=== PATIENT | female | born 1980 | race Caucasian/White ===

== ENCOUNTER → 2018-07-12 12:09 | Outpatient (CLI) | payer OTHER, SELFPAY ==
--- NOTE | 2018-07-12 12:17 | DI.US.S_ITS ---
PROCEDURE: US OB <= 14 WEEKS FETUS INDICATIONS: DATING, VIABILITY OUTSIDE/PRIOR DATING DATA: Last menstrual period (LMP): 04/21/18. LMP-based estimated date of delivery (SISI): 01/26/19. First dating scan (date and location): This study, 07/12/18. Estimated date of delivery (SISI) from first dating scan: 01/26/19, plus or -5 days, based on this study. TECHNIQUE: Real-time scanning was performed of the fetus and maternal pelvic organs, with image documentation. Endovaginal scanning was also performed to better visualize the fetus and maternal ovaries. COMPARISON: None. FINDINGS: Embryo: [place]-rump length of 4.9 cm, which correlates with a gestational age of 11 weeks 5 days, plus or -5 days. cardiac activity at 171 beats per minute is present. Maternal cervical length is normal at 4.1 cm. Measurement variability in dating: +/- 4 weeks by LMP, +/- 7 days by mean sac diameter (use before 6 weeks gestation if crown-rump length not able to be measured), +/- 5 days by crown-rump length (up to 8 weeks 6 days gestation), +/- 7 days by crown-rump length (up to 13 weeks 6 days gestation). Maternal organs: Ovaries appear normal considering gestational status. Limited images through the kidneys demonstrate no hydronephrosis. IMPRESSION: Single living intrauterine gestation with crown-rump length yielding a gestational age of 11 weeks 5 days, plus or -5 days. Followup anatomic survey at approximately 21 weeks gestation is recommended. The delivery date is projected to be centered on 07/12/18. Dictated by: Alan Diallo M.D. on 07/12/2018 at 15:16 Approved by: Alan Diallo M.D. on 07/12/2018 at 15:25
== END ==
PROVIDERS: PCP Family Medicine; Visit Provider Obstetrics & Gynecology
DX: Z34.81 Encounter for supervision of other normal pregnancy, first trimester (principal); Z3A.11 11 weeks gestation of pregnancy
CPT/HCPCS: 76801

== ENCOUNTER → 2018-07-13 10:57 | Outpatient (CLI) | payer OTHER, SELFPAY ==
[2018-07-13 11:33] LABS: Appearance Urine UA CLEAR; Bilirubin Urine UA NEGATIVE (NEGATIVE); Color Urine UA YELLOW; Glucose Urine UA NEGATIVE (Normal); Ketones Urine UA NEGATIVE (NEGATIVE); Leukocyte Esterase Urine UA NEGATIVE (NEGATIVE); Nitrite Urine UA NEGATIVE (Negative); Occult Blood Urine UA NEGATIVE (Negative); Protein Urine UA NEGATIVE (Negative); Specific Gravity Urine UA 1.025 (1.000-1.035); Urobilinogen Urine UA 0.2 E.U./dL (0.2)
[2018-07-13 11:40] LABS: Add Manual Diff / Slide Review NO; Basophils Percent Auto 0.4 % (0-2); Eosinophils Percent Auto 0.7 % (2-4); Hematocrit 39.2 % (36-46); Hemoglobin 13.8 g/dL (12.0-16.0); Lymphocytes Percent Auto 15.1 % (25-40); Mean Corpuscular HGB Conc 35.2 % (30-36); Mean Corpuscular Hemoglobin 32.7 PG (26-34); Monocytes Percent Auto 5.2 % (3-14); Neutrophils Absolute Auto 6700 /uL (3000-5900); Neutrophils Percent Auto 78.6 % (50-75); Platelet Count 236 X10^3/uL (150-400); Red Blood Cell Count 4.22 X10^6/uL (4.0-5.2); Red Cell Distribution Width 13.3 % (11.6-14.8); White Blood Cell Count 8.5 X10^3/uL (4.5-11.0)
[2018-07-13 12:16] LABS: Hepatitis B Surface Antigen NEGATIVE s/c (NEGATIVE); Rubella Antibody IgG 15.1 IU/mL (>15)
[2018-07-13 12:32] LABS: HIV 1 and 2 Antibody NEGATIVE (NEGATIVE); Hep C Virus Ab w/Reflex Quant NEGATIVE s/c (NEGATIVE)
[2018-07-14 14:30] LABS: HSV 2 IGG AB < 0.90 index (< 0.90); HSV1IGG 8.16 index (< 0.90)
[2018-07-15 14:24] LABS: RPR Screen Nonreactive (Nonreactive)
== END ==
PROVIDERS: PCP Family Medicine; Visit Provider Obstetrics & Gynecology
DX: Z34.91 Encounter for supervision of normal pregnancy, unspecified, first trimester (principal)
CPT/HCPCS: 36415; 80055; 81003; 86695; 86696; 86703; 86787; 86803; 86850; 86900; 86901; 87086

== ENCOUNTER → 2018-07-18 14:59 | Outpatient (CLI) | payer OTHER, SELFPAY ==
[2018-07-18 20:16] LABS: Urine N gonorrhoeae NOT DETECTED
[2018-07-18 20:21] LABS: Urine Chlamydia NOT DETECTED
== END ==
PROVIDERS: PCP Family Medicine; Visit Provider Obstetrics & Gynecology
DX: Z34.81 Encounter for supervision of other normal pregnancy, first trimester (principal)
CPT/HCPCS: 87491; 87591

== ENCOUNTER → 2018-08-15 10:35 | Outpatient (CLI) | payer OTHER, SELFPAY ==
[2018-08-20 11:59] LABS: AFP, Serum 34.9 ng/mL; Calc Gestational Age 16.6; Cigarette Smoker N; Donated Egg NOT GIVEN; Donor Egg Age NOT GIVEN; Estriol, Free 0.67 ng/mL; Inhibin A, Dimeric 111 pg/mL; Maternal Weight 140 lbs; Number of Fetuses 1; Previous Pregnancy Down Syndro NOT GIVEN; hCG, MoM 0.72; hCG, Serum 23.1 IU/mL
== END ==
PROVIDERS: PCP Family Medicine; Visit Provider Obstetrics & Gynecology
DX: Z34.82 Encounter for supervision of other normal pregnancy, second trimester (principal)
CPT/HCPCS: 36415; 82105; 82677; 84702; 86336

== ENCOUNTER → 2018-09-17 10:43 | Outpatient (CLI) | payer OTHER, SELFPAY ==
--- NOTE | 2018-09-17 10:44 | DI.US.S_ITS ---
PROCEDURE: US OB >= 14 WEEKS FETUS INDICATIONS: ANATOMY SURVEY OUTSIDE/PRIOR DATING DATA: Last menstrual period (LMP): 04/21/18. LMP-based estimated date of delivery (SISI): 01/26/19. First dating scan (date and location): 07/12/18 Estimated date of delivery (SISI) from first dating scan: 01/26/19. TECHNIQUE: Real-time scanning was performed of the fetus, with image documentation and biometric measurements. Endovaginal scanning: Not needed for this study. COMPARISON: [facility], , OB >= 14 WEEKS FETUS, 07/18/2018, 15:11. FINDINGS: General: A single living intrauterine gestation is present. Presentation: Vertex. Placenta: Placental position is anterior, without previa. Amniotic fluid index: 13.5 cm, normal range is 5-24 cm. heart rate: 153 beats per minute. Maternal cervical canal: 4.0 cm long. Normal lower limit is 2.5 cm. biometrics: Biparietal diameter: 5.0 cm, 21 weeks 1 day Head circumference: 18.3 cm, 20 weeks 5 days Abdominal circumference: 16.8 cm, 21 weeks 6 days Femur length: 3.3 cm, 20 weeks 1 day Estimated gestational age from initial scan: 21 weeks 2 days Composite gestational age from present scan: 21 weeks 0 days Estimated weight and percentile: 396 g, 32nd percentile Measurement variability for biometric dating: +/- 7 days from 14 weeks to 15 weeks 6 days gestation, +/- 10 days from 16 weeks to 21 weeks 6 days gestation, +/- 2 weeks from 22 weeks to 27 weeks 6 days gestation, +/- 3 weeks for 28 weeks gestation or later. weight reference: 4500 g or EFW >90/95% is considered macrosomia or large for gestational age. EFW <10% is small for gestational age. EFW 5% or less is considered intra-uterine growth restriction. Anatomic survey: Neuro: Ventricles are non-dilated at less than 10 mm. Cisterna magna is normal at 3-11 mm. Cerebellum is normal in size and morphology. Nuchal skin fold: Normal at less than 6 mm between 14-21 weeks gestational age. Face: Nose and lips, facial profile are normal. Spine: No evidence for spina bifida. Heart: 4-chambered heart is present, with normal ventricular outflow tracts. Diaphragm: Diaphragm is intact. Stomach: Left-sided stomach is present. Kidneys: No hydronephrosis. Normal is less than 5 mm in 2nd trimester, less than 7 mm in 3rd trimester. Cord: 3-vessel cord has orthotopic insertion. Bladder: Normal in size. Extremities: All 4 extremities identified. IMPRESSION: Single living intrauterine gestation with appropriate interval growth and with no anomaly. The delivery date is projected to be centered on 01/26/19. Dictated by: Alan Diallo M.D. on 09/17/2018 at 13:05 Approved by: Alan Diallo M.D. on 09/17/2018 at 13:08
== END ==
PROVIDERS: PCP Family Medicine; Visit Provider Obstetrics & Gynecology
DX: Z34.82 Encounter for supervision of other normal pregnancy, second trimester (principal); Z3A.21 21 weeks gestation of pregnancy
CPT/HCPCS: 76811

== ENCOUNTER → 2018-10-15 09:00 | Outpatient (CLI) | payer OTHER, SELFPAY ==
[2018-10-15 10:26] LABS: Hematocrit 35.1 % (36-46)
[2018-10-15 10:45] LABS: GTT (PREG) 1 Hour PP 50gm Dose 113 mg/dL (76-139)
== END ==
PROVIDERS: PCP Family Medicine; Visit Provider Obstetrics & Gynecology
DX: Z34.82 Encounter for supervision of other normal pregnancy, second trimester (principal); Z3A.25 25 weeks gestation of pregnancy; Z67.91 Unspecified blood type, Rh negative
CPT/HCPCS: 36415; 82950; 85014; 85018; 86850

== ENCOUNTER → 2018-12-26 10:56 | Outpatient (CLI) | payer OTHER, SELFPAY ==
[2018-12-27 12:27] LABS: Strep Grp B PCR NEG for Grp B Strep
== END ==
PROVIDERS: PCP Family Medicine; Visit Provider Obstetrics & Gynecology
DX: Z34.83 Encounter for supervision of other normal pregnancy, third trimester (principal); Z3A.35 35 weeks gestation of pregnancy
CPT/HCPCS: 87653

== ENCOUNTER 2019-01-30 16:06 | Inpatient (IN) | payer OTHER, SELFPAY ==
[2019-01-30 18:14] LABS: Add Manual Diff / Slide Review NO; Basophils Absolute Auto 0 /uL (0-100); Basophils Percent Auto 0.4 % (0-2); Eosinophils Absolute Auto 0 /uL (0-450); Eosinophils Percent Auto 0.3 % (2-4); Hematocrit 34.1 % (36-46); Hemoglobin 11.8 g/dL (12.0-16.0); Lymphocytes Absolute Auto 1300 /uL (1100-4500); Lymphocytes Percent Auto 12.9 % (25-40); Mean Corpuscular HGB Conc 34.7 % (30-36); Mean Corpuscular Hemoglobin 31.5 PG (26-34); Mean Corpuscular Volume 90.8 fL (80-100); Monocytes Absolute Auto 600 /uL (0-900); Monocytes Percent Auto 6.1 % (3-14); Neutrophils Absolute Auto 8000 /uL (1500-7000); Neutrophils Percent Auto 80.3 % (50-75); Platelet Count 178 X10^3/uL (150-400); Red Blood Cell Count 3.75 X10^6/uL (4.0-5.2); Red Cell Distribution Width 13.8 % (11.6-14.8); White Blood Cell Count 9.9 X10^3/uL (4.5-11.0)
[2019-01-30] MEDS: LACTATED RINGERS 1,000 ML 100 ML IV (18:15)
[2019-01-30 18:33] VITALS: BP 118/71
--- NOTE | 2019-01-30 20:57 | PM.OBHP.1 ---
OB HPI Date/Time Date of admission: 01/30/19 Date Patient Seen: 01/30/19 Time Patient Seen: 17:30 History of Present Condition Chief complaint: LABOR : 6 Para: 4 Estimated Date of Delivery: 01/26/19 Estimated Gestational Age (weeks): 40+4 Narrative: Naomi William is a 38 year old female 6 para 4 at 40-,4/7 weeks gestation for induction of labor Indications Indication for induction OB: post dates History of Present care: good care, initiated at week # (11), number of visits (13) and pounds weight gain (30) Dating criteria: LMP confirmed by 1st trimester US Ultrasounds: normal 1st trimester US and normal mid trimester US Obstetrical complications: none Medical complications: none Preadmission Labs Blood type: 0 (-) negative -: Antibody screen: negative, GBS status: negative, HBsAG: negative, HIV: negative, HSV 1: negative, HSV 2: positive and RPR/VDLR: negative -: Chlamydia screen: not detected and Gonorrhea screen: not detected -: Rubella: equivocal and Varicella: immune HCT: 35.1 HCAB: negative PAP: Abnormal (ASCUS, neg HPV) Quad screen: Normal Urine: Negative 1 hr GTT: 113 Prior (ies) History: 4 's 1 SAB D&C Evaluation Evaluation Baseline heart rate: 120 Variability: Moderate (11-25) monitor accelerations: Present monitor decelerations: Absent Contraction Frequency (minutes): 6 Uterine Contraction Intensity: Mild Category of Tracing: I Cervical dilation (cm): 4 Cervical effacement (%): 80 station: -1 Laboratory results: Laboratory Tests 01/30/19 01/30/19 17:20 17:20 WBC 9.9 RBC 3.75 L Hgb 11.8 L Hct 34.1 L MCV 90.8 MCH 31.5 MCHC 34.7 RDW 13.8 Plt Count 178 Neut % (Auto) 80.3 H Lymph % (Auto) 12.9 L [place] % (Auto) 6.1 Eos % (Auto) 0.3 L Baso % (Auto) 0.4 Neut # (Auto) 8000 H Lymph # (Auto) 1300 [place] # (Auto) 600 Eos # (Auto) 0 Baso # (Auto) 0 Blood Type O Negative Antibody Screen Negative PFSH Social History marital status: household members: spouse and children education level: college 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, in the [place]) Smoking Status: Never smoker alcohol intake: current substance use type: does not use Meds Home Medications Medication Instructions Recorded Confirmed Type ondansetron 4 mg disintegrating 4 mg PO Q6H PRN #20 tab 07/13/18 07/31/18 Rx tablet breast pump #1 each 12/26/18 12/26/18 Rx Allergies Allergy/AdvReac Type Severity Reaction Status Date / Time No Known Allergies Allergy Uncoded 07/31/18 10:41 Exam Vital Signs (past 8 hours): - 01/30/19 18:33 Blood Pressure 118/71 Narrative Exam Narrative: Generally: Patient is sitting up in bed, no acute distress Lungs: Clear to auscultation bilaterally Cardiovascular: Regular rate and rhythm Fundal height: 39 cm Estimated weight: 7-1/2 lb Extremities: No edema, negative Homans Objective Labs Result Diagrams: 01/30/19 17:20 Labs: Laboratory Results - last 24 hr 01/30/19 01/30/19 17:20 17:20 WBC 9.9 RBC 3.75 L Hgb 11.8 L Hct 34.1 L MCV 90.8 MCH 31.5 MCHC 34.7 RDW 13.8 Plt Count 178 Neut % (Auto) 80.3 H Lymph % (Auto) 12.9 L [place] % (Auto) 6.1 Eos % (Auto) 0.3 L Baso % (Auto) 0.4 Neut # (Auto) 8000 H Lymph # (Auto) 1300 [place] # (Auto) 600 Eos # (Auto) 0 Baso # (Auto) 0 Blood Type O Negative Antibody Screen Negative Assessment and Plan Assessment and Plan Assessment and Plan narrative: Assessment: 38-year-old 6 para 4 at 40 and 4 7th weeks gestation for induction of labor Plan: Artificial rupture membranes with copious amounts of clear amniotic fluid Epidural as necessary Pitocin as needed Expectant management of spontaneous vaginal delivery Time Spent with Patient Total time spent with greater than 50% in coordination of care (as documented) at patient's floor/unit and/or counseling patient:: 15-24 minutes
--- NOTE | 2019-01-30 23:17 | PM.OBPRVD ---
Delivery date: 01/30/19 Intrapartal events: None Cervical ripening method: none Induction method: AROM Delivery augmentation: pitocin Delivery monitor: external FHT and external uterine Route of delivery: Episiotomy description: None L&D Laceration Description: Superficial (Perineal) Delivery repair: chromic Estimated blood loss (mL): 100 Anesthesia type: Epidural Complications: None Narrative: Patient complete and pushed with 3 contractions. At 11:00 p.m., a live male delivered spontaneously in the HECTOR presentation, over an intact perineum. No nuchal cord. The remainder of the body delivered without difficulty and was placed on mom's abdomen. Once the cord stopped pulsing, the cord was double clamped and cut. Cord bloods were obtained. Pitocin was given in the IV fluids. At 2315, the placenta delivered intact with a three-vessel cord. The fundus was massaged to firm. A superficial laceration at the introitus was repaired with 3 0 chromic. A large tag from a previous obstetrical laceration on the right side was excised with a 15. Blade. This was approximately 2-1/2 cm by 0.75 cm. The wound was closed with 3 O Vicryl with simple interrupted sutures. Hemostasis was achieved. Epidural analgesia. . Apgars 8 at 1 minute and 9 at 5 minutes. Mom and stable to recovery. Plan for aftercare: To routine care
--- NOTE | 2019-01-30 23:20 | P.PCNOB_ITS ---
Delivery date: 01/30/19 Intrapartal events: None Cervical ripening method: none Induction method: AROM Delivery augmentation: pitocin Delivery monitor: external FHT and external uterine Route of delivery: Episiotomy description: None L&D Laceration Description: Superficial (Perineal) Delivery repair: chromic Estimated blood loss (mL): 100 Anesthesia type: Epidural Complications: None Narrative: Patient complete and pushed with 3 contractions. At 11:00 p.m., a live male delivered spontaneously in the HECTOR presentation, over an intact perineum. No nuchal cord. The remainder of the body delivered without diffic ulty and was placed on mom's abdomen. Once the cord stopped pulsing, the cord was double clamped and cut. Cord bloods were obtained. Pitocin was given in the IV fluids. At 2315, the placenta delivered intact with a three-vessel cord. The fundus was massaged to firm. A superficial laceration at the introitus was repaired with 3 0 chromic. A large tag from a previous obstetrical laceration on the right side was excised with a 15. Blade. This was approximately 2-1/2 cm by 0.75 cm. The wound was closed with 3 O Vicryl with simple interrupted sutures. Hemostasis was achieved. Epidural analgesia. . Apgars 8 at 1 minute and 9 at 5 minutes. Mom and infant stable to recovery. Plan for aftercare: To routine care
[2019-01-31] MEDS: KETOROLAC 30 MG/ML VIAL IV ×2 (03:40→09:36)
[2019-01-31 09:03] LABS: Hematocrit 34.5 % (36-46); Hemoglobin 11.8 g/dL (12.0-16.0)
[2019-01-31 09:36] VITALS: TEMP 36.9
[2019-01-31] MEDS: DOCUSATE 250 MG CAPSULE PO (09:36)
[2019-01-31] MEDS: PRENATAL VIT,CALC/IRON/FOLIC 1 TABLET 1 TAB PO (09:36)
[2019-01-31] MEDS: IBUPROFEN 600 MG TABLET PO (19:49)
--- NOTE | 2019-01-31 21:29 | P.PNOB_ITS ---
Subjective - OB Patient comments: no complaints baby status: nursing well [place] feeding status: exclusively breast feeding Date Patient Seen: 01/31/19 Time Patient Seen: 10:30 Interval history: Patient is day # 1 status post spontaneous vaginal delivery after induction of labor at 40 and 4 7th weeks gestation. Exam Vital Signs (past 8 hours): Generally: Patient sitting up in bed, holding infant, no acute distress Fundus: Firm at U -1 Extremities: Negative Homans, no edema Objective Labs Result Diagrams: 01/31/19 08:45 Labs: Laboratory Results - last 24 hr 01/31/19 01/31/19 08:45 08:45 Hgb 11.8 L Hct 34.5 L Maternal Bleed Negative Assessment & Plan Plan day: 1 plan OB: routine care Comments: Anticipate discharge 02/01/2019 Time Spent With Patient Total time spent is greater than 50% in coordination of care (as documented) at patient's floor/unit and/or counseling patient: 15-24 minutes
--- NOTE | 2019-02-01 08:28 | PM.OBDS.1 ---
Discharge Providers Date of admission: 01/30/19 16:06 Discharge Date: 02/01/19 Primary care physician: Olive Brown DO Consults: 01/31/19 03:28 Consult to Bradley Linebacker Crewmember Routine Comment: Discharge provider: Corrina Dhillon MD Summary Date Patient Seen: 02/01/19 Time Patient Seen: 08:29 Procedures: Artificial rupture of membranes Pitocin induction of labor Epidural analgesia Spontaneous vaginal delivery Hospital Course: Patient presented on 01/30/2019 for artificial rupture membranes and Pitocin augmentation of labor. She delivered fairly quickly with spontaneous vaginal delivery without complication. Her course was unremarkable and she is discharged to home on day # 2. Peripartum Data Infant Delivery Method: Natural Vaginal Laceration description: None Episiotomy description: None Procedures: Spontaneous vaginal delivery Artificial rupture of membranes Epidural analgesia complications: none Status at Discharge Cognitive/behavioral status at discharge: oriented Functional status at discharge: independent ambulation Overall status at discharge: patient is progressing back to baseline Time Spent with Patient Total time spent providing and/or coordinating discharge services: Less than 30 minutes Objective Labs Result Diagrams: 01/31/19 08:45 Labs: Laboratory Results - last 24 hr 01/31/19 01/31/19 08:45 08:45 Hgb 11.8 L Hct 34.5 L Maternal Bleed Negative Discharge Plan Discharge Plan Patient Disposition: Home Discharge comment: Call with fever, chills or bleeding vaginally more than a pad in an hour Discharge Med Rec/Prescriptions Prescriptions: Continued breast pump [Pump In Style Advanced] device .ROUTE .MEDSUPPLY Qty: 1 RF: 0 Discontinued ondansetron [Zofran ODT] 4 mg tablet,disintegrating 4 mg PO Q6H PRN (Reason: nausea and vomiting) Qty: 20 RF: 2 Follow up/Referrals: Corrina Dhillon MD [Physician] - 6 Weeks Provider Discharge Instructions Diet: Regular Activity: No intercourse Skin/Wound/Dressing Care Report to your healthcare provider any signs of infection, such as:: chills, fever, increased pain and unusual drainage Visit Report/Discharge Packet Instructions: DI for Labor and Delivery, Vaginal Discharge Data Primary Care Provider: Olive Brown Attending Provider: Corrina Dhillon Admit Date/Time: 01/30/19 16:06
[2019-02-01] MEDS: IBUPROFEN 600 MG TABLET PO (09:12)
[2019-02-01] MEDS: DOCUSATE 250 MG CAPSULE PO (09:14)
[2019-02-01] MEDS: PRENATAL VIT,CALC/IRON/FOLIC 1 TABLET 1 TAB PO (09:14)
[2019-02-01 10:36] VITALS: BP 98/63; PULSE 72; RESP 18; TEMP 36.9
[2019-02-01] MEDS: RHO(D) IMMUNE GLOBULIN 1,500 UNIT SYRINGE 1500 UNIT IM (12:28)
[2019-02-01] MEDS: MEASLES,MUMPS,RUBELLA VACC/PF 0.5 ML VIAL SUBCUT (12:34)
== END 2019-02-01 12:50 | disposition home or self-care (01) | DRG 807 ==
PROVIDERS: Admitting Provider Obstetrics & Gynecology; PCP Family Medicine; Visit Provider Obstetrics & Gynecology
DX: O48.0 Post-term pregnancy (principal); Z37.0 Single live birth; Z3A.40 40 weeks gestation of pregnancy; O70.0 First degree perineal laceration during delivery
CPT/HCPCS: 01967; 36415; 59050; 59400; 85014; 85018; 85025; 85461; 86850; 86900; 86901; G0379; J1885; J2790; J3010

== ENCOUNTER → 2021-09-08 11:45 | Outpatient (CLI) | payer OTHER, SELFPAY ==
--- NOTE | 2021-09-08 11:46 | DI.MG.S_ITS ---
BILATERAL DIGITAL SCREENING MAMMOGRAM 3D/2D WITH CAD: 09/08/2021 CLINICAL: Routine screening. Baseline exam. No prior exams were available for comparison. The tissue of both breasts is heterogeneously dense. This may lower the sensitivity of mammography. Current study was also evaluated with a Computer Aided Detection (CAD) system. There is a possible focal asymmetry in the left breast at 2 o'clock middle depth. No other significant masses, calcifications, or other findings are seen in either breast. IMPRESSION: INCOMPLETE: NEEDS ADDITIONAL IMAGING EVALUATION The possible focal asymmetry in the left breast is indeterminate. Additional views with possible ultrasound are recommended. This exam was interpreted at Station ID: [id number]. NOTE: For mammograms, a report in lay terms will be sent to the patient. Approximately 15% of breast malignancies will not be visualized mammographically. In the management of a palpable breast mass, a negative mammogram must not discourage biopsy of a clinically suspicious lesion. Electronically Signed By: Louis veliz/johnathan:09/08/2021 12:25:52 letter sent: Additional Imaging Needed ACR BI-RADS Category 0: Incomplete 3340F
== END ==
PROVIDERS: PCP Family Medicine; Referring Provider Family Medicine; Visit Provider Family Medicine
DX: Z12.31 Encounter for screening mammogram for malignant neoplasm of breast (principal)
CPT/HCPCS: 77063; 77067

== ENCOUNTER → 2021-10-13 08:41 | Outpatient (CLI) | payer BC, OTHER, SELFPAY ==
--- NOTE | 2021-10-13 08:42 | DI.US.S_ITS ---
LIMITED ULTRASOUND OF LEFT BREAST: 10/13/2021 CLINICAL: Patient returns today to evaluate a focal asymmetry in the left breast. Comparison is made to exams dated: 10/13/2021 mammogram and 09/08/2021 mammogram - [facility]. Real-time ultrasound of the left breast 2 o'clock region was performed. Burgess scale images of the real-time examination were reviewed. No significant abnormalities were seen sonographically in the left breast. Specifically, no finding to correspond to the patient's resolved screening mammographic abnormality. IMPRESSION: NEGATIVE There is no sonographic evidence of malignancy. Return to annual mammogram screening schedule is recommended. Findings and recommendations were conveyed to the patient at time of exam. This exam was interpreted at Station ID: [id number]. Electronically Signed By: Teresita lombardo/:10/13/2021 10:05:31 letter sent: Normal Exam Ultrasound BI-RADS: 1 Negative
--- NOTE | 2021-10-13 08:42 | DI.MG.S_ITS ---
UNILATERAL LEFT DIGITAL DIAGNOSTIC MAMMOGRAM 3D/2D WITH ADDITIONAL VIEWS: 10/13/2021 CLINICAL: Additional evaluation requested from prior study. Comparison is made to exam dated: 09/08/2021 [facility]. The tissue of left breast is heterogeneously dense. This may lower the sensitivity of mammography. Prior asymmetry is no longer seen in the left breast at 2 o'clock. This is consistent with overlapping fibroglandular tissue. No significant masses, calcifications, or other findings are seen in the breast. IMPRESSION: INCOMPLETE: NEEDS ADDITIONAL IMAGING EVALUATION Resolution of screening mammography abnormality with additional views. Ultrasound evaluation to confirm resolution is recommended and was performed immediately following this exam. This exam was interpreted at Station ID: [id number]. NOTE: For mammograms, a report in lay terms will be sent to the patient. Approximately 15% of breast malignancies will not be visualized mammographically. In the management of a palpable breast mass, a negative mammogram must not discourage biopsy of a clinically suspicious lesion. Electronically Signed By: Teresita lombardo/:10/13/2021 09:10:03 ACR BI-RADS Category 0: Incomplete 3340F
== END ==
PROVIDERS: PCP Family Medicine; Referring Provider Family Medicine; Visit Provider Family Medicine
DX: R92.8 Other abnormal and inconclusive findings on diagnostic imaging of breast (principal)
CPT/HCPCS: 76642; 77065; G0279

== ENCOUNTER → 2023-01-09 11:56 | Outpatient (CLI) | payer BC, OTHER, SELFPAY ==
--- NOTE | 2023-01-09 11:58 | DI.MG.S_ITS ---
BILATERAL DIGITAL SCREENING MAMMOGRAM 3D/2D WITH CAD: 01/09/2023 CLINICAL: Routine screening. Comparison is made to exams dated: 09/08/2021 mammogram and 10/13/2021 mammogram - [facility]. There are scattered areas of fibroglandular density in both breasts (category b / 25%-50% glandular tissue). Current study was also evaluated with a Computer Aided Detection (CAD) system. No significant masses, calcifications, or other findings are seen in either breast. There has been no significant interval change. IMPRESSION: NEGATIVE There is no mammographic evidence of malignancy. A 1 year screening mammogram is recommended. Based on the Tyrer Cuzick model (a risk assessment model) the patient's lifetime risk is 6.7% and her 10 year risk is 1.0%. According to the ACR, ACS, and NCCN guidelines, an annual breast MRI exam along with mammogram is recommended if the patient's lifetime risk is 20% or greater. This exam was interpreted at Station ID: [id number]. NOTE: For mammograms, a report in lay terms will be sent to the patient. Approximately 15% of breast malignancies will not be visualized mammographically. In the management of a palpable breast mass, a negative mammogram must not discourage biopsy of a clinically suspicious lesion. Electronically Signed By: Louis veliz/johnathan:01/09/2023 13:00:30 letter sent: Normal Exam ACR BI-RADS Category 1: Negative [id number]
== END ==
PROVIDERS: PCP Family Medicine; Referring Provider Family Medicine; Visit Provider Family Medicine
DX: Z12.31 Encounter for screening mammogram for malignant neoplasm of breast (principal)
CPT/HCPCS: 77063; 77067

== ENCOUNTER → 2024-02-06 09:10 | Outpatient (CLI) | payer BC, OTHER, SELFPAY ==
--- NOTE | 2024-02-06 09:11 | DI.MG.S_ITS ---
BILATERAL DIGITAL SCREENING MAMMOGRAM 3D/2D WITH CAD: 02/06/2024 CLINICAL: Routine screening. Comparison is made to exams dated: 01/09/2023 mammogram and 09/08/2021 mammogram - [facility]. There are scattered areas of fibroglandular density in both breasts (category b / 25%-50% glandular tissue). Current study was also evaluated with a Computer Aided Detection (CAD) system. No significant masses, calcifications, or other findings are seen in either breast. There has been no significant interval change. IMPRESSION: NEGATIVE There is no mammographic evidence of malignancy. A 1 year screening mammogram is recommended. Based on the Tyrer Cuzick model (a risk assessment model) the patient's lifetime risk is 6.7% and her 10 year risk is 1.0%. According to the ACR, ACS, and NCCN guidelines, an annual breast MRI exam along with mammogram is recommended if the patient's lifetime risk is 20% or greater. This exam was interpreted at Station ID: [id number]. NOTE: For mammograms, a report in lay terms will be sent to the patient. Approximately 15% of breast malignancies will not be visualized mammographically. In the management of a palpable breast mass, a negative mammogram must not discourage biopsy of a clinically suspicious lesion. Electronically Signed By: Julian marin/johnathan:02/07/2024 09:30:47 letter sent: Normal Exam ACR BI-RADS Category 1: Negative [id number]
== END ==
LOC: MAMMO 09:11
PROVIDERS: PCP Family Medicine; Referring Provider Family Medicine; Visit Provider Family Medicine
DX: Z12.31 Encounter for screening mammogram for malignant neoplasm of breast (principal); R92.323 Mammographic fibroglandular density, bilateral breasts
CPT/HCPCS: 77063; 77067

== ENCOUNTER → 2024-02-22 06:20 | Outpatient (CLI) | payer BC, OTHER, SELFPAY ==
[2024-02-22 08:26] LABS: Cholesterol 235 mg/dL (140-199); HDL Cholesterol 59 mg/dL (40-60); LDL Cholesterol Calculated 148 mg/dL (<100); Triglycerides 138 mg/dL (35-150)
== END ==
LOC: LAB 06:21
PROVIDERS: PCP Family Medicine; Referring Provider Family Medicine; Visit Provider Family Medicine
DX: Z13.220 Encounter for screening for lipoid disorders (principal); Z82.49 Family history of ischemic heart disease and other diseases of the circulatory system
CPT/HCPCS: 36415; 80061

== ENCOUNTER → 2025-05-08 10:46 | Outpatient (CLI) | payer BC, OTHER, SELFPAY ==
--- NOTE | 2025-05-08 10:48 | DI.MG.S_ITS ---
MM screening mammo BI: 05/08/2025. BI-RADS: 1 CLINICAL: 44-year old female for bilateral screening mammogram. Tyrer-Cuzick lifetime risk of 8.8%. No personal or first-degree family history of breast cancer. PRIOR EXAMS 02/06/2024, 01/09/2023, 10/13/2021, 09/08/2021. MAMMOGRAPHY TECHNIQUE: 2D and 3D (tomosynthesis) digital mammographic views obtained, with additional images as needed for full coverage. Current study was also evaluated with a Computer Aided Detection (CAD) system. DENSITY C. The breasts are heterogeneously dense, which may obscure small masses. MAMMOGRAPHY FINDINGS Bilateral: No suspicious mass, asymmetry, microcalcification, or other abnormality seen. IMPRESSION: * No evidence of malignancy. RECOMMENDATIONS Bilateral * Annual screening mammography. OVERALL ASSESSMENT CATEGORY BI-RADS-1: Negative. The [employer] recommends annual screening mammography beginning at age 40 for women with average risk of breast cancer. ELECTRONICALLY SIGNED: Osiris Boss M.D. on 05/09/2025 at 11:41:32 PM PT Interpreting Station ID: [id number]
== END ==
PROVIDERS: PCP Family Medicine; Referring Provider Family Medicine; Visit Provider Family Medicine
DX: Z12.31 Encounter for screening mammogram for malignant neoplasm of breast (principal); R92.333 Mammographic heterogeneous density, bilateral breasts
CPT/HCPCS: 77063; 77067